=== PATIENT | male | born 1925 | race Caucasian/White ===

== ENCOUNTER 2016-04-09 16:56 | Inpatient (IN) ==
[2016-04-09 18:11] LABS: Basophils # (Auto) 0 K/mcL (0.0-0.3); Basophils % (Auto) 0.3 % (0.0-2.0); Eosinophils # (Auto) 0.2 K/mcL (0.0-0.7); Eosinophils % (Auto) 1.2 % (0.0-7.0); Granulocytes % (Auto) 81.4 % (38.0-78.0); Lymphocytes # (Auto) 1.2 K/mcL (1.5-4.8); Lymphocytes % (Auto) 8.6 % (15.5-49.0); Mean Cell Volume 94.2 fL (80.0-100.0); Mean Corpuscular HGB Conc 33.5 g/dL (31.0-36.0); Mean Corpuscular Hemoglobin 31.6 pg (26.0-34.0); Monocytes # (Auto) 1.2 K/mcL (0.1-0.9); Monocytes % (Auto) 8.5 % (1.0-9.0); Platelet Count 117 K/mcL (140-440); RBC 3.72 M/mcL (4.50-5.90); Red Cell Distribution Width 14.9 % (11.5-14.5)
--- NOTE | 2016-04-09 18:15 | Emergency Department Note ---
Weakness HPI - General Chief complaint: Weakness Stated complaint: cough, congestion,weak, falling Time Seen by Provider: 04/09/16 17:49 Source: patient, family Mode of arrival: ambulatory Limitations: no limitations - History of Present Illness HPI Narrative: 89-year-old gentleman is brought in by the daughter secondary to generalized weakness, which has progressed over the course of last few days. The. He did take a round of antibiotics started on 30 March for an upper respiratory infection, he was seen in the office for that and he also has diarrhea, we don' t really know how me stools. He has on a daily basis except that the daughter did observe one large episode of stool incontinence which she states was bloody and it was in the bed. He is on Coumadin. 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 Diarrhea has been chronic for the last few years, but seems to be worse since his respiratory infection. No vomiting, no chest pain. He does tell me his chest feels tight, but is laying comfortably on the gurney. He is quite wheezy, no history of COPD no history of smoking. MD Complaint: generalized weakness - Related Data Home Medications Medication Instructions Recorded Confirmed aspirin 81 mg chewable tablet 81 mg PO QDAY tab 08/03/14 04/09/16 carbidopa 25 mg-levodopa 100 mg 1 tab PO TID tab 08/03/14 04/09/16 tablet carvedilol 6.25 mg tablet 6.25 mg PO .COMPLEX tab 08/03/14 04/09/16 clopidogrel 75 mg tablet 75 mg PO QDAY tab 08/03/14 04/09/16 ezetimibe 10 mg-simvastatin 20 mg 1 tab PO QDAY tab 08/03/14 04/09/16 tablet furosemide 80 mg tablet 80 mg PO BID tab 08/03/14 04/09/16 meclizine 25 mg tablet 25 mg PO TID PRN tab 08/03/14 04/09/16 niacin ER 500 mg tablet,extended 500 mg PO QHS tab 08/03/14 04/09/16 release 24 hr potassium chloride ER 10 mEq 20 meq PO BID tab 08/03/14 04/09/16 tablet,extended release tramadol 50 mg tablet 50 mg PO Q6H PRN tab 06/16/15 02/20/17 losartan 25 mg tablet 25 mg PO QDAY tab 03/08/16 04/09/16 Previous Rx's Medication Instructions Recorded cholecalciferol (vitamin D3) 1,000 1,000 unit PO ONCE #30 cap 08/30/14 unit capsule donepezil 10 mg tablet 10 mg PO QHS #90 tab 01/11/16 tamsulosin 0.4 mg capsule 0.4 mg PO QDAY 90 Days 02/15/16 levofloxacin 750 mg tablet 750 mg PO QDAY #7 tab 03/29/16 prednisone 20 mg tablet 20 mg PO BID #20 tab 03/29/16 Allergies Allergy/AdvReac Type Severity Reaction Status Date / Time hydrochlorothiazide Allergy Unknown Unknown Verified 03/29/16 15:22 Review of Systems Limitations: ROS unobtainable due to patients medical condition Constitutional: Denies: fever, chills ENT ED: Denies: throat pain Cardiovascular: Denies: chest pain Respiratory: Reports: cough, dyspnea Gastrointestinal: Reports: diarrhea. Denies: abdominal pain, nausea Neurological: Reports: weakness Psychiatric: Reports: depression Endocrine: Reports: fatigue Past Medical History - Past Medical History Source: nursing notes reviewed Medical history: Reports: atrial fibrillation, coronary artery disease, dementia Surgical history ED: Reports: coronary bypass (CABG) Family history: Reports: no significant family history, non-contributory - Social History smoking status: Never smoker Alcohol use: Reports: Rarely Physical Exam - General Limitations: physical limitation General appearance: alert, other (generally weak appearing hard of hearing) - Head Head exam: atraumatic, normocephalic - Eye Eye exam: Present: normal appearance, PERRL, EOMI. Absent: scleral icterus, conjunctival injection, nystagmus - ENT ENT exam: normal exam, normal oropharynx, mucous membranes moist, TM's normal bilaterally - Neck Neck exam: Present: normal inspection, full ROM, trachea midline. Absent: meningismus - Chest Chest inspection: Present: normal inspection, symmetric chest wall rise - Respiratory Respiratory exam: Present: wheezes. Absent: respiratory distress - Cardiovascular Cardiovascular exam: Present: regular rate, systolic murmur, other (Paced rhythm almost 100%) - Abdominal Exam Abdominal exam: Present: soft, normal bowel sounds. Absent: distention, tenderness - Rectal Exam Rectal exam: Present: normal inspection, decreased rectal tone, heme (+) stool, other (soft brown stool, no rectal masses,) - exam: Present: normal inspection - Extremities Exam Extremities exam: Present: normal inspection, full ROM, other (Parkinsonian tremor of this upper extremities). Absent: pedal edema - Neurological Exam Neurological exam: Present: alert, reflexes normal. Absent: motor sensory deficit - Psychiatric Psychiatric exam: Present: flat affect - Skin Skin exam: Present: warm, dry, pallor Course - Reevaluation(s) Reevaluation #1: Discussed the case with our hospital daughter, the patient does have a number of issues going on. #1, he is being treated for failure and he is somewhat unreliable historian, certainly still wheezy, having respiratory issues and this after a seven-day course of Levaquin 750 mg per day. His diarrhea is about the same, he in fact, the daughter noticed a large amount of blood in the stool, he is on Plavix. He is also on aspirin and he is on 80 mg of Lasix twice a day, which may be causing some dehydration and. He might be weak from the dehydration as well as the diarrhea, he cannot tell us how may bowel movements. He has had per day, but certainly according to the daughter, he's had issues with the diarrhea, also recently been on antibiotics and is at risk for C. difficile. He has no acute abdominal pain, abdominal exam relatively unremarkable, but then he had blood in his stools and he may have gastritis which is hemorrhagic and induce from the antiplatelet therapy. His white blood cell count is elevated, but then he has been on steroids as well, difficult to tell whether he has an acute infection or whether he is struggling with heart failure. Certainly his heart sounds would support acute CHF with mild dehydration. Discussed with her hospital daughter this point, he will be admitted to hospital for further management and diagnosis Vital Signs Temperature 97.6 F 04/09/16 16:57 Pulse Rate 74 04/09/16 16:57 Respiratory Rate 16 04/09/16 16:57 Blood Pressure 129/67 04/09/16 16:57 Temperature 97.6 F 04/09/16 16:57 Pulse Rate 64 04/09/16 19:10 Respiratory Rate 18 04/09/16 19:10 Blood Pressure 146/58 04/09/16 19:09 Pulse Oximetry (%) 98 04/09/16 19:09 Weakness - MDM Narrative Medical decision making narrative: final diagnosis is CHF. #2, generalized weakness secondary to upper respiratory infection. #3. Diarrhea acute on chronic. #4. Heme positive stools. #5. Mild dehydration. - Lab Data Result diagrams: 04/09/16 17:30 04/09/16 17:30 Lab Results 04/09/16 04/09/16 04/09/16 Range/Units 17:30 17:30 17:30 WBC 13.7 H (4.5-11.0) K/mcL RBC 3.72 L (4.50-5.90) M/mcL Hgb 11.7 L (13.5-16.5) g/dL Hct 35.0 L (41.0-55.0) % MCV 94.2 (80.0-100.0) fL MCH 31.6 (26.0-34.0) pg MCHC 33.5 (31.0-36.0) g/dL RDW 14.9 H (11.5-14.5) % Plt Count 117 L (140-440) K/mcL MPV 8.1 (7.4-10.4) fL Gran % 81.4 H (38.0-78.0) % Lymph % (Auto) 8.6 L (15.5-49.0) % [place] % (Auto) 8.5 (1.0-9.0) % Eos % (Auto) 1.2 (0.0-7.0) % Baso % (Auto) 0.3 (0.0-2.0) % Gran # 11.1 H (1.8-8.0) K/mcL Lymph # 1.2 L (1.5-4.8) K/mcL [place] # 1.2 H (0.1-0.9) K/mcL Eos # 0.2 (0.0-0.7) K/mcL Baso # 0 (0.0-0.3) K/mcL ESR (0-15) mm/hr PT (11.9-14.5) sec INR (0.9-1.1) VBG Lactic Acid 2.3 H (0.5-2.2) mmol/L Sodium 140 (133-145) mmol/L Potassium 3.9 (3.3-5.1) mmol/L Chloride 101 (96-108) mmol/L Carbon Dioxide 25 (22-30) mmol/L Anion Gap 14.0 (8-16) BUN 38 H (8-23) mg/dl Creatinine 1.6 H (0.7-1.2) mg/dl GFR Calculation 38 Glucose 106 H (70-105) mg/dL Calcium 8.7 (8.6-10.4) mg/dl Magnesium (1.6-2.5) mg/dL Total Bilirubin 1.8 H (0.0-1.0) mg/dL AST 26 (0-37) U/l ALT 29 (0-40) U/l Alkaline Phosphatase 58 (39-117) U/L Troponin T (0-0.03) ng/ml C-Reactive Protein (0.0-0.8) mg/dl NT-Pro-B Natriuret Pep (0-450) pg/ml Total Protein 6.2 (5.9-8.4) gm/dL Albumin 3.8 (3.2-5.2) gm/dL Globulin 2.4 (2.2-3.7) gm/dL Albumin/Globulin Ratio 1.6 (1.0-2.3) Urine Color Urine Appearance Urine pH (5.0-9.0) Ur Specific [place] (1.000-1.035) Urine Protein (NEG) mg/dL Urine Glucose (UA) (NEG) mg/dL Urine Ketones (NEG) mg/dL Urine Occult Blood (<0.03) mg/dL Urine Nitrate (NEG) Urine Bilirubin (NEG) mg/dL Urine Urobilinogen (NEG) mg/dL Ur Leukocyte Esterase (NEG) /uL Ur Culture Indicated? 04/09/16 04/09/16 04/09/16 Range/Units 17:30 17:30 17:30 WBC (4.5-11.0) K/mcL RBC (4.50-5.90) M/mcL Hgb (13.5-16.5) g/dL Hct (41.0-55.0) % MCV (80.0-100.0) fL MCH (26.0-34.0) pg MCHC (31.0-36.0) g/dL RDW (11.5-14.5) % Plt Count (140-440) K/mcL MPV (7.4-10.4) fL Gran % (38.0-78.0) % Lymph % (Auto) (15.5-49.0) % [place] % (Auto) (1.0-9.0) % Eos % (Auto) (0.0-7.0) % Baso % (Auto) (0.0-2.0) % Gran # (1.8-8.0) K/mcL Lymph # (1.5-4.8) K/mcL [place] # (0.1-0.9) K/mcL Eos # (0.0-0.7) K/mcL Baso # (0.0-0.3) K/mcL ESR 12 (0-15) mm/hr PT (11.9-14.5) sec INR (0.9-1.1) VBG Lactic Acid (0.5-2.2) mmol/L Sodium (133-145) mmol/L Potassium (3.3-5.1) mmol/L Chloride (96-108) mmol/L Carbon Dioxide (22-30) mmol/L Anion Gap (8-16) BUN (8-23) mg/dl Creatinine (0.7-1.2) mg/dl GFR Calculation Glucose (70-105) mg/dL Calcium (8.6-10.4) mg/dl Magnesium (1.6-2.5) mg/dL Total Bilirubin (0.0-1.0) mg/dL AST (0-37) U/l ALT (0-40) U/l Alkaline Phosphatase (39-117) U/L Troponin T 0.01 (0-0.03) ng/ml C-Reactive Protein (0.0-0.8) mg/dl NT-Pro-B Natriuret Pep 894.1 H (0-450) pg/ml Total Protein (5.9-8.4) gm/dL Albumin (3.2-5.2) gm/dL Globulin (2.2-3.7) gm/dL Albumin/Globulin Ratio (1.0-2.3) Urine Color Urine Appearance Urine pH (5.0-9.0) Ur Specific [place] (1.000-1.035) Urine Protein (NEG) mg/dL Urine Glucose (UA) (NEG) mg/dL Urine Ketones (NEG) mg/dL Urine Occult Blood (<0.03) mg/dL Urine Nitrate (NEG) Urine Bilirubin (NEG) mg/dL Urine Urobilinogen (NEG) mg/dL Ur Leukocyte Esterase (NEG) /uL Ur Culture Indicated? 04/09/16 04/09/16 04/09/16 Range/Units 17:30 17:30 19:57 WBC (4.5-11.0) K/mcL RBC (4.50-5.90) M/mcL Hgb (13.5-16.5) g/dL Hct (41.0-55.0) % MCV (80.0-100.0) fL MCH (26.0-34.0) pg MCHC (31.0-36.0) g/dL RDW (11.5-14.5) % Plt Count (140-440) K/mcL MPV (7.4-10.4) fL Gran % (38.0-78.0) % Lymph % (Auto) (15.5-49.0) % [place] % (Auto) (1.0-9.0) % Eos % (Auto) (0.0-7.0) % Baso % (Auto) (0.0-2.0) % Gran # (1.8-8.0) K/mcL Lymph # (1.5-4.8) K/mcL [place] # (0.1-0.9) K/mcL Eos # (0.0-0.7) K/mcL Baso # (0.0-0.3) K/mcL ESR (0-15) mm/hr PT 15.6 H (11.9-14.5) sec INR 1.2 H (0.9-1.1) VBG Lactic Acid (0.5-2.2) mmol/L Sodium (133-145) mmol/L Potassium (3.3-5.1) mmol/L Chloride (96-108) mmol/L Carbon Dioxide (22-30) mmol/L Anion Gap (8-16) BUN (8-23) mg/dl Creatinine (0.7-1.2) mg/dl GFR Calculation Glucose (70-105) mg/dL Calcium (8.6-10.4) mg/dl Magnesium 2.5 (1.6-2.5) mg/dL Total Bilirubin (0.0-1.0) mg/dL AST (0-37) U/l ALT (0-40) U/l Alkaline Phosphatase (39-117) U/L Troponin T (0-0.03) ng/ml C-Reactive Protein 5.2 H (0.0-0.8) mg/dl NT-Pro-B Natriuret Pep (0-450) pg/ml Total Protein (5.9-8.4) gm/dL Albumin (3.2-5.2) gm/dL Globulin (2.2-3.7) gm/dL Albumin/Globulin Ratio (1.0-2.3) Urine Color Yellow Urine Appearance Clear Urine pH 5.0 (5.0-9.0) Ur Specific [place] 1.013 (1.000-1.035) Urine Protein Neg (NEG) mg/dL Urine Glucose (UA) Negative (NEG) mg/dL Urine Ketones Neg (NEG) mg/dL Urine Occult Blood Neg (<0.03) mg/dL Urine Nitrate Neg (NEG) Urine Bilirubin Neg (NEG) mg/dL Urine Urobilinogen Neg (NEG) mg/dL Ur Leukocyte Esterase Neg (NEG) /uL Ur Culture Indicated? No Disposition Disposition: Xfer As Inpt ([facility]) Condition: Fair Referrals: Pito Hernandez MD [Primary Care Provider] -
[2016-04-09 18:32] LABS: ALT/SGPT 29 U/l (0-40); Albumin 3.8 gm/dL (3.2-5.2); Albumin/Globulin Ratio 1.6 (1.0-2.3); Alkaline Phosphatase 58 U/L (39-117); Blood Urea Nitrogen 38 mg/dl (8-23)
[2016-04-09] MEDS ORDERED: IPRATROPIUM/ALBUTEROL 3 ML AMPUL.NEB NEB ONE (18:55)
[2016-04-09 18:57] LABS: C-Reactive Protein 5.2 mg/dl (0.0-0.8); Magnesium 2.5 mg/dL (1.6-2.5)
[2016-04-09] MEDS ORDERED: LACTATED RINGERS 1,000 ML IV SCH (19:00)
[2016-04-09] MEDS ORDERED: CAPTOPRIL 12.5 MG TABLET PO ONE (19:15)
[2016-04-09] MEDS ORDERED: ACETAMINOPHEN 325 MG TABLET PO ONE (19:15)
[2016-04-09] MEDS ORDERED: LIDOCAINE 5% OINT TUBE 35GM TOPICAL ONE (19:36)
[2016-04-09] MEDS ORDERED: LIDOCAINE JEL 2% 1 TUBE 30GM TOPICAL ONE ×2 (19:44→19:45)
[2016-04-09 20:28] LABS: Appearance,Urine CLEAR; Bilirubin,Urine NEG (NEG); Color,Urine YELLOW; Glucose,Urine (UA) NEGATIVE (NEG); Leukocyte Esterase,Urine NEG /uL (NEG); Nitrate,Urine NEG (NEG); Protein,Urine NEG (NEG); Specific Gravity,Urine 1.013 (1.000-1.035); Urine Blood NEG mg/dL (<0.03); Urobilinogen,Urine NEG (NEG)
--- NOTE | 2016-04-09 21:42 | Internal Med History&Physical ---
Medical - H&P: HPI Patient information: Note initiated : 04/09/16 at 9:39 pm Service Date, if different from initiated Date: [] Patient: Lakhwinder Randhawa a 89 y/o M admitted on for cough, congestion,weak, falling. Chief Complaint: [] History of present illness: Mr. Randhawa is a 89 year old male with multiple medical problems, dementia, parkinsons disease, presented to the ER with complaints of not feeling well for the last 2 weeks The patient was seen for cough, sob and wheezing in Dr Landin office approx 10 days ago, where he was diagnosed with copd exacerbation, treated with anbitiotics, and prednisone. The patient had some improvement in his condition but his condition worsened again. He began feeling weak and tired and unable to perform his routine activities Pt is a poor historian and history obtained from family who lives with him. The daughter who takes him to [facility] appointments was not present. The pt also ahs chr diarrhea going on for many years, but over the last week the family has noticed blood in the stools signifciant as per them, no clots. The patient fob in the ER Was positive but no gross blood was noted. Pt is on dual antiplatet agents from cardiology Pt denies any nausea or vomitingg, but has poor appetitie, no renetta, but has brigh red blood in stools, denies any chest pain, but admits to cough and shortness of breath. workup in the ER postive for elevated wbc, lactate and creat, cxr is neg. esr normal but crp is elevated. - Constitutional Constitutional: Present: chills, fever(s), weakness - EENT Eyes: Absent: blurry vision, change in vision Nose, mouth and throat: Absent: abnormal hearing, bleeding gums - Cardiovascular Cardiovascular: Absent: chest pain, orthopnea, palpatations, syncope - Respiratory Respiratory: Present: cough, dyspnea on exertion, wheezing, excessive phlegm production, change in phlegm color - Gastrointestinal Gastrointestinal: Present: diarrhea, excessive flatus, hematochezia, loose stools. Absent: abdominal pain, nausea, vomiting - Genitourinary Genitourinary: Absent: nocturia, urinary frequency, urinary hesitancy - Musculoskeletal Musculoskeletal: Absent: arthralgias, joint swelling - Integumentary Integumentary: Absent: skin ulcer, wounds, jaundice - Neurological Neurological: Present: weakness. Absent: disequilibrium, focal weakness, syncope, vertigo - Psychiatric Psychiatric: Present: confusion - Endocrine Endocrine: Absent: polydipsia, polyphagia, polyuria - Hematologic/Lymphatic Hematologic/Lymphatic: Present: easy bleeding, easy bruising - Allergic/Immunologic Allergic/Immunologic: Present: wheezing. Absent: uticaria Medical - H&P: [facility] Medical history: Medical History Thrombocytopenia (Acute) Aortic valve insufficiency (Chronic) Arthritis (Chronic) Atrial fibrillation (Chronic) CAD (coronary artery disease) of bypass graft (Chronic) Cardiomyopathy (Chronic) Chest pain (Chronic) Chronic edema (Chronic) Colon polyps (Chronic) Depression (Chronic) Gallbladder disorder (Chronic) Hyperlipidemia (Chronic) Hypertension, essential (Chronic) Mitral valve regurgitation (Chronic) Obesity (Chronic) Pacemaker (Chronic) Parkinson disease (Chronic) Skin disease (Chronic 06/23/14) Surgical history: Past Surgical History History of appendectomy (Chronic) History of back surgery (Chronic) History of cholecystectomy (Chronic) History of colonoscopy (Chronic) History of coronary artery bypass graft x 3 (Chronic) History of knee surgery (Chronic) History of pacemaker (Chronic) Family history: reviewed and not pertinent Social history: retired remote history of smoking no etoh no recreational substance lives with family. Medical - H&P: Meds Home Medications Medication Instructions Recorded Confirmed Type aspirin 81 mg chewable tablet 81 mg PO QDAY tab 08/03/14 04/09/16 History carbidopa 25 mg-levodopa 100 mg 1 tab PO TID tab 08/03/14 04/09/16 History tablet carvedilol 6.25 mg tablet 6.25 mg PO .COMPLEX tab 08/03/14 04/09/16 History clopidogrel 75 mg tablet 75 mg PO QDAY tab 08/03/14 04/09/16 History ezetimibe 10 mg-simvastatin 20 mg 1 tab PO QDAY tab 08/03/14 04/09/16 History tablet furosemide 80 mg tablet 80 mg PO BID tab 08/03/14 04/09/16 History meclizine 25 mg tablet 25 mg PO TID PRN tab 08/03/14 04/09/16 History niacin ER 500 mg tablet,extended 500 mg PO QHS tab 08/03/14 04/09/16 History release 24 hr potassium chloride ER 10 mEq 20 meq PO BID tab 08/03/14 04/09/16 History tablet,extended release tramadol 50 mg tablet 50 mg PO Q6H PRN tab 08/03/14 04/09/16 History losartan 25 mg tablet 25 mg PO QDAY tab 03/08/16 04/09/16 History Allergies Allergy/AdvReac Type Severity Reaction Status Date / Time hydrochlorothiazide Allergy Unknown Unknown Verified 03/29/16 15:22 Medical - H&P: Exam - Constitutional Vitals: Temp Pulse Resp BP Pulse Ox 97.6 F 70 26 H 105/84 97 04/09/16 16:57 04/09/16 21:19 04/09/16 21:19 04/09/16 21:19 04/09/16 21:19 General appearance: cooperative, no acute distress - Head Head exam: Present: atraumatic, normal inspection, normocephalic - Eye Eye exam: Absent: periorbital swelling, periorbital tenderness, scleral icterus - ENT ENT exam: Present: normal external ear exam Additional comments: hearing hard to conversation. - Neck Neck exam: Present: normal inspection - Respiratory Respiratory exam: Present: prolonged expiratory phase, rhonchi, wheezes. Absent : accessory muscle use - Cardiovascular Cardiovascular exam: Present: irregular rhythm, +S1, +S2 - GI/Abdominal GI/Abdominal exam: Present: normal bowel sounds, soft. Absent: firm, guarding, rigid, tenderness - Extremities Exam Extremities exam: Present: pedal edema (trace), Foot pink and warm, neurovascular intact - Back Exam Back exam: Present: normal inspection. Absent: CVA tenderness (L), CVA tenderness (R) - Neurological Exam Additional comments: [email or web address] obeys commands moves all extremities cn grossly intact. - Psychiatric Psychiatric exam: Absent: agitated - Skin Skin exam: Absent: rash, urticaria Medical - H&P: Reslt - Labs CBC & Chem 7: 04/09/16 17:30 04/09/16 17:30 Labs: Short CBC 04/09/16 Range/Units 17:30 WBC 13.7 H (4.5-11.0) K/mcL Hgb 11.7 L (13.5-16.5) g/dL Hct 35.0 L (41.0-55.0) % Plt Count 117 L (140-440) K/mcL BMP 04/09/16 17:30 Sodium 140 Potassium 3.9 Chloride 101 Carbon Dioxide 25 BUN 38 H Creatinine 1.6 H Glucose 106 H Calcium 8.7 Cardiac Enzymes 04/09/16 Range/Units 17:30 Troponin T 0.01 (0-0.03) ng/ml Liver Function 04/09/16 Range/Units 17:30 Total Bilirubin 1.8 H (0.0-1.0) mg/dL AST 26 (0-37) U/l ALT 29 (0-40) U/l Alkaline Phosphatase 58 (39-117) U/L Albumin 3.8 (3.2-5.2) gm/dL Urine 04/09/16 Range/Units 19:57 Urine Color Yellow Urine Appearance Clear Urine pH 5.0 (5.0-9.0) Ur Specific [place] 1.013 (1.000-1.035) Urine Protein Neg (NEG) mg/dL Urine Glucose (UA) Negative (NEG) mg/dL Medical - H&P: A/P (1) COPD exacerbation Current visit: Yes Status: Acute (2) Clostridium difficile diarrhea Current visit: Yes Status: Acute (3) Atrial fibrillation Current visit: No Status: Chronic (4) CAD (coronary artery disease) of bypass graft Problem details: 2002 Post CABG Current visit: No Status: Chronic (5) Pacemaker Problem details: 2010 Current visit: No Status: Chronic (6) Parkinson disease Current visit: No Status: Chronic (7) Sepsis Current visit: Yes Status: Acute - Narrative A/P Narrative: pt presents with sob, wheezing, and cough, failued outpatient treatment, with broad spectrum ABx Also has chr diarrhea with change in nature. now has intermittent blood in the stools Stools when evaluated in ER as per ER physician did not have gross blood Treat copd with iv steroids, Zithromax and duonebs, pt is not a good candidate for inhalers as outpt as given his age and dementia will not be able to coordinate his breath. Diarrhea- chr issue, but new blood in stool is concerning, check for Cdiff and start pt on vancomycin po given h/o recent use of abs afib- on dual antiplatlent agents, not on coumadin as high risk of bleed as per outpatient notes dvt hep sq GIB likely from colitis, monitor for now, if the patient develops significant bleed will get GI eval CAD/ CHF/ mild bnp elevation, CXR looks ok, resume home medications and monitor closely Code full for now, pt family to get his will and let us know in AM analy disease- resume meds Fall precautions.
[2016-04-09] MEDS ORDERED: ONDANSETRON 4 MG/2 ML VIAL IV PRN (22:34)
[2016-04-09] MEDS ORDERED: NALOXONE HCL 0.4 MG/ML VIAL IV PRN (22:34)
[2016-04-09] MEDS ORDERED: CARVEDILOL 6.25 MG TABLET PO SCH (22:34)
[2016-04-09] MEDS ORDERED: ACETAMINOPHEN 325 MG TABLET PO PRN (22:34)
[2016-04-09] MEDS ORDERED: AZITHROMYCIN 250 MG TABLET PO ONE (22:34)
[2016-04-09] MEDS ORDERED: traMADol 50 MG TABLET PO PRN (23:07)
[2016-04-09] MEDS: methylPREDNISolone SOD SUCC 125 MG/2 ML VIAL ONE ×2 (23:08→23:21)
[2016-04-09] MEDS: 0.9 % SODIUM CHLORIDE 1,000 ML IV SCH (23:14)
[2016-04-09] MEDS: IPRATROPIUM/ALBUTEROL 3 ML AMPUL.NEB NEB SCH (23:17)
[2016-04-10] MEDS: IPRATROPIUM/ALBUTEROL 3 ML AMPUL.NEB NEB SCH ×6 (03:27→22:58)
[2016-04-10] MEDS: methylPREDNISolone SOD SUCC 40 MG/ML VIAL IV SCH ×3 (05:38→22:39)
[2016-04-10 05:44] LABS: Basophils # (Auto) 0 K/mcL (0.0-0.3); Basophils % (Auto) 0 % (0.0-2.0); Eosinophils # (Auto) 0.1 K/mcL (0.0-0.7); Eosinophils % (Auto) 0.9 % (0.0-7.0); Lymphocytes # (Auto) 0.6 K/mcL (1.5-4.8); Lymphocytes % (Auto) 7.2 % (15.5-49.0); Mean Cell Volume 94.6 fL (80.0-100.0); Mean Corpuscular HGB Conc 33.2 g/dL (31.0-36.0); Mean Corpuscular Hemoglobin 31.5 pg (26.0-34.0); Monocytes # (Auto) 0.2 K/mcL (0.1-0.9); Monocytes % (Auto) 1.9 % (1.0-9.0); Platelet Count 82 K/mcL (140-440); RBC 3.07 M/mcL (4.50-5.90); Red Cell Distribution Width 15.2 % (11.5-14.5)
[2016-04-10 06:10] LABS: ALT/SGPT 22 U/l (0-40); Albumin 2.9 gm/dL (3.2-5.2); Albumin/Globulin Ratio 1.6 (1.0-2.3); Alkaline Phosphatase 46 U/L (39-117); Bilirubin,Direct 0.5 mg/dL (0.0-0.3); Blood Urea Nitrogen 32 mg/dl (8-23); Gamma Glutamyl Transpeptidase 12 U/L (8-61); Magnesium 2.4 mg/dL (1.6-2.5); Phosphorous 3.3 mg/dL (2.7-4.5); Uric Acid 7.9 mg/dL (2.5-8.0)
--- NOTE | 2016-04-10 07:42 | XRay Report ---
CLINICAL INFORMATION: Shortness of breath COMPARISON: 03/29/2016. FINDINGS: Pacemaker/defibrillator in stable satisfactory position. Cardiomediastinal silhouette and pulmonary vessels are normal. Lungs are clear. No effusions. IMPRESSION: Negative Interpreted and Authenticated by: George Dan 04/10/16
[2016-04-10] MEDS ORDERED: [UNRECOGNIZED DRUG - OTHER] PO SCH (09:00)
[2016-04-10] MEDS ORDERED: EZETIMIBE PO SCH (09:00)
[2016-04-10] MEDS ORDERED: SIMVASTATIN PO SCH (09:00)
[2016-04-10] MEDS ORDERED: VANCOMYCIN ORAL SOL 1,000 MG/10 ML BOTTLE PO SCH (09:00)
[2016-04-10] MEDS: CARVEDILOL 6.25 MG TABLET PO SCH ×2 (09:59→17:27)
[2016-04-10] MEDS: LOSARTAN 25 MG TABLET PO SCH (09:59)
[2016-04-10] MEDS: ASPIRIN 81 MG TAB.CHEW PO SCH (09:59)
[2016-04-10] MEDS: HEPARIN 5,000 UNIT/ML VIAL SQ SCH ×2 (09:59→20:53)
[2016-04-10] MEDS: CLOPIDOGREL 75 MG TABLET PO SCH (09:59)
[2016-04-10] MEDS: PANTOPRAZOLE 40 MG VIAL IV SCH (09:59)
[2016-04-10] MEDS: TAMSULOSIN 0.4 MG CAPSULE PO SCH (09:59)
[2016-04-10] MEDS: SIMVASTATIN 20 MG TABLET PO SCH (10:00)
[2016-04-10] MEDS ORDERED: NICOTINE 21 MG PATCH TOPICAL SCH (10:00)
[2016-04-10] MEDS: CARBIDOPA/LEVODOPA 25/100 TABLET PO SCH ×3 (10:00→20:53)
[2016-04-10] MEDS: FUROSEMIDE 80 MG TABLET PO SCH ×2 (10:00→17:26)
[2016-04-10] MEDS: POTASSIUM CHLORIDE 10 MEQ TABLET PO SCH ×2 (10:00→17:27)
[2016-04-10] MEDS: EZETIMIBE 10 MG TABLET PO SCH (10:00)
[2016-04-10] MEDS: 0.9 % SODIUM CHLORIDE 1,000 ML IV SCH ×2 (10:02→20:43)
--- NOTE | 2016-04-10 15:31 | Internal Med Progress Note ---
Medical - PN: Subj Patient information: Note initiated : 04/10/16 at 3:29 pm Service Date, if different from initiated Date: [] Patient: Lakhwinder Randhawa 89 y/o M admitted on 04/09/16 for COPD, Diarrhea, Sepsis. Chief Complaint: [] Interval history: 04/09: Mr. Randhawa is a 89 year old male with multiple medical problems, dementia, parkinsons disease, presented to the ER with complaints of not feeling well for the last 2 weeks The patient was seen for cough, sob and wheezing in Dr Landin office approx 10 days ago, where he was diagnosed with copd exacerbation, treated with anbitiotics, and prednisone. The patient had some improvement in his condition but his condition worsened again. He began feeling weak and tired and unable to perform his routine activities Pt is a poor historian and history obtained from family who lives with him. The daughter who takes him to [facility] appointments was not present. The pt also ahs chr diarrhea going on for many years, but over the last week the family has noticed blood in the stools signifciant as per them, no clots. The patient fob in the ER Was positive but no gross blood was noted. Pt is on dual antiplatet agents from cardiology Pt denies any nausea or vomitingg, but has poor appetitie, no renetta, but has brigh red blood in stools, denies any chest pain, but admits to cough and shortness of breath. workup in the ER postive for elevated wbc, lactate and creat, cxr is neg. esr normal but crp is elevated. 04/10: Seen examined, no acute overnight events, some events with tachycardia on tele, , pt asymptomatic, electrolytes stable. Patient to start on beta blockers. Sob and cough much better, maitaining oxygen saturations. patient diarrhea has no longer present, Cdiff is negative, vancomycin stopped Continue steroids, duonebs and zithromax. Pertinent ROS: Denies headache, dizziness Denies chest pain, palpitations cough and sob present, but improved. Denies abdominal pain, nausea or vomiting. - Constitutional Vitals: Vital Signs Temp Pulse Resp BP Pulse Ox 98.0 F 63 16 97/70 97 04/10/16 11:44 04/10/16 15:25 04/10/16 15:25 04/10/16 11:44 04/10/16 11:44 Period Temp Pulse Resp BP Sys/Argueta Pulse Ox Last 24 Hr 97.8 F-98.4 F 60-66 16-24 97-162/60-70 95-97 Intake and Output 04/10/16 04/10/16 04/10/16 05:59 13:59 21:59 Intake Total 360 / 1360 2019 Output Total 300 / 300 425 / 425 Balance 60 / 1060 1595 / 1595 Weight 180 lb 9.6 oz Patient Weight 04/11/16 05:59 Weight 180 lb 9.6 oz Intake & Output: Intake & Output 04/10/16 04/10/16 04/10/16 05:59 13:59 21:59 Intake Total 360 / 1360 2019 Output Total 300 / 300 425 / 425 Balance 60 / 1060 1595 / 1595 Weight 180 lb 9.6 oz Intake: IV 1000 / 1000 Sodium Chloride 0.9% 1, 1000 / 1000 000 ml @ 100 mls/hr IV . Q10H [facility] Rx#:[id number] Oral 360 / 360 1020 / 1020 Output: Void Amount 300 / 300 425 / 425 Other: Meal Lunch Percent of Meal Consumed 100% Feeding Ability Independent # Voids 1 Exam: Constitutional; Afebrile, cooperative, alert, not in distress. Eyes- No icterus, Pupils equal, reactive, No periorbital swelling Ears- Ext ear normal, hearing normal to conversation. Neck- Midline trachea, supple Respiratory system: Air Entry equal on both sides,john rhonchi improved since yesterday. CVS- Rate normal rhythm irregular, S1,S2 heard, no gallop, no rub. Abdomen- Soft nontender abdomen, no organomegaly, no tenderness, no guarding or rigidity, [employer]- AOOx2, moving all extremities, no focal deficit noted. Medical - PN: Obj Da - Labs CBC & Chem 7: 04/10/16 04:26 04/10/16 04:26 Labs: Abnormal Lab Results 04/10/16 04/10/16 04:26 04:26 RBC 3.07 L Hgb 9.7 L Hct 29.1 L RDW 15.2 H Plt Count 82 L Gran % 90.0 H Lymph % (Auto) 7.2 L Lymph # 0.6 L BUN 32 H Creatinine 1.3 H Glucose 121 H Calcium 7.7 L Total Bilirubin 1.3 H Direct Bilirubin 0.5 H Total Protein 4.7 L Albumin 2.9 L Globulin 1.8 L Meds: Medications Acetaminophen (Tylenol) 650 mg PO Q6HP PRN PRN Reason: PAIN/FEVER > 101 Albuterol/Ipratropium (Duoneb) 3 ml NEB Q4HRT [facility] Last Admin: 04/10/16 15:18 Dose: 3 ml Aspirin (Aspirin) 81 mg PO QDAY [facility] Last Admin: 04/10/16 09:59 Dose: 81 mg Azithromycin (Zithromax) 250 mg PO DAILY [facility] Stop: 04/13/16 09:01 Carbidopa/Levodopa (Sinemet 25/100) 1 tab PO TID [facility] Last Admin: 04/10/16 10:00 Dose: 1 tab Carvedilol (Coreg) 6.25 mg PO BIDCC [facility] Last Admin: 04/10/16 09:59 Dose: 6.25 mg Clopidogrel Bisulfate (Plavix) 75 mg PO QDAY [facility] Last Admin: 04/10/16 09:59 Dose: 75 mg Donepezil HCl (Aricept) 10 mg PO QHS [facility] Ezetimibe (Zetia) 10 mg PO DAILY [facility] Last Admin: 04/10/16 10:00 Dose: 10 mg Furosemide (Lasix) 80 mg PO BIDD [facility] Last Admin: 04/10/16 10:00 Dose: 80 mg Heparin Sodium (Porcine) (Heparin) 5,000 unit SQ Q12 [facility] Last Admin: 04/10/16 09:59 Dose: 5,000 unit Sodium Chloride (Sodium Chloride 0.9%) 1,000 mls @ 100 mls/hr IV .Q10H [facility] Last Admin: 04/10/16 10:02 Dose: 100 mls/hr Losartan Potassium (Cozaar) 25 mg PO QDAY [facility] Last Admin: 04/10/16 09:59 Dose: 25 mg Methylprednisolone Sodium Succinate (Solu-Medrol) 40 mg IV Q8 [facility] Last Admin: 04/10/16 05:38 Dose: 40 mg Naloxone HCl (Narcan) 0.1 mg IV Q2MIN PRN PRN Reason: Opiate Reversal Ondansetron HCl (Zofran) 4 mg IV Q4HP PRN PRN Reason: Nausea And Vomiting Pantoprazole Sodium (Protonix) 40 mg IV QAMAC [facility] Last Admin: 04/10/16 09:59 Dose: 40 mg Potassium Chloride (Kdur) 20 meq PO BIDCC [facility] Last Admin: 04/10/16 10:00 Dose: 20 meq Simvastatin (Zocor) 20 mg PO DAILY [facility] Last Admin: 04/10/16 10:00 Dose: 20 mg Tamsulosin HCl (Flomax) 0.4 mg PO QDAY [facility] Last Admin: 04/10/16 09:59 Dose: 0.4 mg Tramadol HCl (Ultram) 50 mg PO Q6HP PRN PRN Reason: Pain Medical - PN: A/P - Time Spent With Patient Total time spent is greater than 50% in coordination of care (as documented) at patient's floor/unit and/or counseling patient: (1) COPD exacerbation Status: Acute Current Visit: Yes (2) Clostridium difficile diarrhea Status: Acute Current Visit: Yes (3) Atrial fibrillation Status: Chronic Current Visit: No (4) 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 DVT hep sq diet regular with thin. Medical - PN: Qual - VTE Deep Vein Thrombosis/Pulmonary Embolism Present on Admission: No
[2016-04-10] MEDS: AZITHROMYCIN 250 MG TABLET PO SCH (17:27)
[2016-04-10] MEDS ORDERED: DONEPEZIL 10 MG TABLET PO SCH (21:00)
[2016-04-10] MEDS: guaiFENesin/CODEINE 10 ML UDC PO PRN (23:53)
[2016-04-11] MEDS: IPRATROPIUM/ALBUTEROL 3 ML AMPUL.NEB NEB SCH ×4 (02:53→15:36)
[2016-04-11] MEDS: methylPREDNISolone SOD SUCC 40 MG/ML VIAL IV SCH ×2 (05:11→14:35)
[2016-04-11 06:04] LABS: ALT/SGPT 13 U/l (0-40); Albumin/Globulin Ratio 1.8 (1.0-2.3); Alkaline Phosphatase 43 U/L (39-117); Bilirubin,Direct 0.3 mg/dL (0.0-0.3); Blood Urea Nitrogen 25 mg/dl (8-23); Gamma Glutamyl Transpeptidase 11 U/L (8-61); Magnesium 2.2 mg/dL (1.6-2.5); Phosphorous 2.7 mg/dL (2.7-4.5)
[2016-04-11 06:12] LABS: Basophils # (Auto) 0 K/mcL (0.0-0.3); Basophils % (Auto) 0 % (0.0-2.0); Eosinophils # (Auto) 0 K/mcL (0.0-0.7); Eosinophils % (Auto) 0.4 % (0.0-7.0); Granulocytes % (Auto) 92.3 % (38.0-78.0); Lymphocytes # (Auto) 0.5 K/mcL (1.5-4.8); Lymphocytes % (Auto) 5.2 % (15.5-49.0); Mean Corpuscular HGB Conc 33.5 g/dL (31.0-36.0); Mean Corpuscular Hemoglobin 31.8 pg (26.0-34.0); Monocytes # (Auto) 0.2 K/mcL (0.1-0.9); Monocytes % (Auto) 2.1 % (1.0-9.0); Platelet Count 72 K/mcL (140-440); RBC 2.99 M/mcL (4.50-5.90); Red Cell Distribution Width 15.6 % (11.5-14.5)
[2016-04-11] MEDS: 0.9 % SODIUM CHLORIDE 1,000 ML IV SCH (10:12)
[2016-04-11] MEDS: TAMSULOSIN 0.4 MG CAPSULE PO SCH (10:52)
[2016-04-11] MEDS: guaiFENesin/CODEINE 10 ML UDC PO PRN (10:52)
[2016-04-11] MEDS: PANTOPRAZOLE 40 MG VIAL IV SCH (10:52)
[2016-04-11] MEDS: LOSARTAN 25 MG TABLET PO SCH (10:52)
[2016-04-11] MEDS: HEPARIN 5,000 UNIT/ML VIAL SQ SCH (10:52)
[2016-04-11] MEDS: SIMVASTATIN 20 MG TABLET PO SCH (10:53)
[2016-04-11] MEDS: AZITHROMYCIN 250 MG TABLET PO SCH (10:53)
[2016-04-11] MEDS: POTASSIUM CHLORIDE 10 MEQ TABLET PO SCH (10:53)
[2016-04-11] MEDS: ASPIRIN 81 MG TAB.CHEW PO SCH (10:53)
[2016-04-11] MEDS: CLOPIDOGREL 75 MG TABLET PO SCH (10:53)
[2016-04-11] MEDS: CARBIDOPA/LEVODOPA 25/100 TABLET PO SCH ×2 (10:53→15:36)
[2016-04-11] MEDS: EZETIMIBE 10 MG TABLET PO SCH (10:53)
[2016-04-11] MEDS: FUROSEMIDE 80 MG TABLET PO SCH (10:53)
[2016-04-11] MEDS: CARVEDILOL 6.25 MG TABLET PO SCH (10:53)
--- NOTE | 2016-04-11 11:50 | Internal Med Progress Note ---
Medical - PN: Subj Patient information: Note initiated : 04/11/16 at 11:46 am Service Date, if different from initiated Date: [] Patient: Lakhwinder Randhawa 89 y/o M admitted on 04/09/16 for COPD, Diarrhea, Sepsis. Chief Complaint: [] Interval history: DISCHARGE DIAGNOSIS * COPD exacerbation-clinically resolvedon steroids/bronchodilators/ABX. * history of CAD/CHF on a similar/beta niecy/Plavix/statin/aspirin * A. fib on beta niecy * History of Parkinson's disease * hyperlipidemia on statin * dementia and donepezil * BPH tamsulosin Brief hospital course 04/09: Mr. Randhawa is a 89 year old male with multiple medical problems, dementia, parkinsons disease, presented to the ER with complaints of not feeling well for the last 2 weeks The patient was seen for cough, sob and wheezing in Dr Landin office approx 10 days ago, where he was diagnosed with copd exacerbation, treated with anbitiotics, and prednisone. The patient had some improvement in his condition but his condition worsened again. He began feeling weak and tired and unable to perform his routine activities Pt is a poor historian and history obtained from family who lives with him. The daughter who takes him to [facility] appointments was not present. The pt also ahs chr diarrhea going on for many years, but over the last week the family has noticed blood in the stools signifciant as per them, no clots. The patient fob in the ER Was positive but no gross blood was noted. Pt is on dual antiplatet agents from cardiology Pt denies any nausea or vomitingg, but has poor appetitie, no renetta, but has brigh red blood in stools, denies any chest pain, but admits to cough and shortness of breath. workup in the ER postive for elevated wbc, lactate and creat, cxr is neg. esr normal but crp is elevated. 04/10: Seen examined, no acute overnight events, some events with tachycardia on tele, , pt asymptomatic, electrolytes stable. Patient to start on beta blockers. Sob and cough much better, maitaining oxygen saturations. patient diarrhea has no longer present, Cdiff is negative, vancomycin stopped Continue steroids, duonebs and zithromax. 04/11- discharge home on azithromycin for additional 4 days. No overnight fever chills nausea vomiting. No concerns per staff. No telemetry events. continue steroids for additional 5 days.detailed discharge instructions as below - Constitutional Vitals: Vital Signs Temp Pulse Resp BP Pulse Ox 98.4 F 81 20 122/63 94 04/11/16 11:39 04/11/16 08:00 04/11/16 11:39 04/11/16 11:39 04/11/16 11:39 Period Temp Pulse Resp BP Sys/Argueta Pulse Ox Last 24 Hr 98.0 F-98.8 F 63-81 16- 121-163/60-80 93-98 Intake and Output 04/10/16 04/11/16 04/11/16 21:59 05:59 13:59 Intake Total 1480 / 1480 1080 / 1080 1000 / 1000 Output Total 550 / 550 1050 / 1050 Balance 930 / 930 30 / 30 1000 / 1000 Weight 180 lb 1.6 oz Intake & Output: Intake & Output 04/10/16 04/11/16 04/11/16 21:59 05:59 13:59 Intake Total 1480 / 1480 1080 / 1080 1000 / 1000 Output Total 550 / 550 1050 / 1050 Balance 930 / 930 30 / 30 1000 / 1000 Weight 180 lb 1.6 oz Intake: IV 1000 / 1000 1000 / 1000 Sodium Chloride 0.9% 1, 1000 / 1000 1000 / 1000 000 ml @ 100 mls/hr IV . Q10H [facility] Rx#:[id number] Oral 480 / 480 1080 / 1080 Output: Void Amount 550 / 550 1050 / 1050 Other: Meal Dinner Percent of Meal Consumed 100% Feeding Ability Assist with Tray Set Up Medical - PN: Obj Da - Labs CBC & Chem 7: 04/11/16 04:16 04/11/16 04:16 Labs: Abnormal Lab Results 04/11/16 04/11/16 04/10/16 04:16 04:16 04:26 RBC 2.99 L Hgb 9.5 L Hct 28.4 L RDW 15.6 H Plt Count 72 L Gran % 92.3 H Lymph % (Auto) 5.2 L Gran # 8.9 H Lymph # 0.5 L BUN 25 H 32 H Creatinine 1.3 H Glucose 144 H 121 H Calcium 7.5 L 7.7 L Total Bilirubin 1.3 H Direct Bilirubin 0.5 H Lactate Dehydrogenase 266 H Total Protein 4.7 L 4.7 L Albumin 3.0 L 2.9 L Globulin 1.7 L 1.8 L 04/10/16 04:26 RBC 3.07 L Hgb 9.7 L Hct 29.1 L RDW 15.2 H Plt Count 82 L Gran % 90.0 H Lymph % (Auto) 7.2 L Gran # Lymph # 0.6 L BUN Creatinine Glucose Calcium Total Bilirubin Direct Bilirubin Lactate Dehydrogenase Total Protein Albumin Globulin Meds: Medications Acetaminophen (Tylenol) 650 mg PO Q6HP PRN PRN Reason: PAIN/FEVER > 101 Albuterol/Ipratropium (Duoneb) 3 ml NEB Q4HRT [facility] Last Admin: 04/11/16 07:09 Dose: 3 ml Aspirin (Aspirin) 81 mg PO QDAY [facility] Last Admin: 04/11/16 10:53 Dose: 81 mg Azithromycin (Zithromax) 250 mg PO DAILY [facility] Stop: 04/13/16 09:01 Last Admin: 04/11/16 10:53 Dose: 250 mg Carbidopa/Levodopa (Sinemet 25/100) 1 tab PO TID [facility] Last Admin: 04/11/16 10:53 Dose: 1 tab Carvedilol (Coreg) 6.25 mg PO BIDCC [facility] Last Admin: 04/11/16 10:53 Dose: 6.25 mg Clopidogrel Bisulfate (Plavix) 75 mg PO QDAY [facility] Last Admin: 04/11/16 10:53 Dose: 75 mg Donepezil HCl (Aricept) 10 mg PO QHS [facility] Last Admin: 04/10/16 20:53 Dose: 10 mg Ezetimibe (Zetia) 10 mg PO DAILY [facility] Last Admin: 04/11/16 10:53 Dose: 10 mg Furosemide (Lasix) 80 mg PO BIDD [facility] Last Admin: 04/11/16 10:53 Dose: 80 mg Guaifenesin/Codeine Phosphate (Robitussin Ac) 10 ml PO Q4HP PRN PRN Reason: Cough Last Admin: 04/11/16 10:52 Dose: 10 ml Heparin Sodium (Porcine) (Heparin) 5,000 unit SQ Q12 [facility] Last Admin: 04/11/16 10:52 Dose: 5,000 unit Sodium Chloride (Sodium Chloride 0.9%) 1,000 mls @ 100 mls/hr IV .Q10H [facility] Last Admin: 04/11/16 10:12 Dose: 100 mls/hr Losartan Potassium (Cozaar) 25 mg PO QDAY [facility] Last Admin: 04/11/16 10:52 Dose: 25 mg Methylprednisolone Sodium Succinate (Solu-Medrol) 40 mg IV Q8 [facility] Last Admin: 04/11/16 05:11 Dose: 40 mg Naloxone HCl (Narcan) 0.1 mg IV Q2MIN PRN PRN Reason: Opiate Reversal Ondansetron HCl (Zofran) 4 mg IV Q4HP PRN PRN Reason: Nausea And Vomiting Pantoprazole Sodium (Protonix) 40 mg IV QAMAC [facility] Last Admin: 04/11/16 10:52 Dose: 40 mg Potassium Chloride (Kdur) 20 meq PO BIDCC [facility] Last Admin: 04/11/16 10:53 Dose: 20 meq Simvastatin (Zocor) 20 mg PO DAILY [facility] Last Admin: 04/11/16 10:53 Dose: 20 mg Tamsulosin HCl (Flomax) 0.4 mg PO QDAY [facility] Last Admin: 04/11/16 10:52 Dose: 0.4 mg Tramadol HCl (Ultram) 50 mg PO Q6HP PRN PRN Reason: Pain Medical - PN: A/P - Time Spent With Patient Total time spent is greater than 50% in coordination of care (as documented) at patient's floor/unit and/or counseling patient: Medical - PN: Qual - VTE Deep Vein Thrombosis/Pulmonary Embolism Present on Admission: No
--- NOTE | 2016-04-11 11:53 | Discharge Summary ---
Medical - DS: Prov Patient information: Note initiated : 04/11/16 at 11:50 am Service Date, if different from initiated Date: [] Patient: Lakhwinder Randhawa 89 y/o M admitted on 04/09/16 for COPD, Diarrhea, Sepsis. Chief Complaint: [] Date of admission: 04/09/16 22:31 Discharge date: 04/11/16 Primary care physician: [f_Reg Prim Care Provider] Medical - DS: Meds - Discharge Medications Prescriptions: Azithromycin [Zithromax] 250 mg PO DAILY #4 tablet predniSONE [Prednisone] 20 mg PO BID #10 tab Active and Home Medications: Home Medications aspirin 81 mg chewable tablet 81 mg PO QDAY tab 08/03/14 [History Confirmed Last Taken Unknown] carbidopa 25 mg-levodopa 100 mg tablet 1 tab PO TID tab 08/03/14 [History Confirmed 04/09/16 Last Taken Unknown] carvedilol 6.25 mg tablet 6.25 mg PO .COMPLEX tab 08/03/14 [History Confirmed 04/09/16 Last Taken Unknown] clopidogrel 75 mg tablet 75 mg PO QDAY tab 08/03/14 [History Confirmed Last Taken Unknown] ezetimibe 10 mg-simvastatin 20 mg tablet 1 tab PO QDAY tab 08/03/14 [History Confirmed 04/09/16 Last Taken Unknown] furosemide 80 mg tablet 80 mg PO BID tab 08/03/14 [History Confirmed 04/09/16 Last Taken Unknown] meclizine 25 mg tablet 25 mg PO TID PRN tab 08/03/14 [History Confirmed Last Taken Unknown] niacin ER 500 mg tablet,extended release 24 hr 500 mg PO QHS tab 08/03/14 [ History Confirmed 04/09/16 Last Taken Unknown] potassium chloride ER 10 mEq tablet,extended release 20 meq PO BID tab [History Confirmed 04/09/16 Last Taken Unknown] tramadol 50 mg tablet 50 mg PO Q6H PRN tab 08/03/14 [History Confirmed Last Taken Unknown] cholecalciferol (vitamin D3) 1,000 unit capsule 1,000 unit PO ONCE #30 cap 08/30 [Rx Confirmed 04/09/16 Last Taken Unknown] donepezil 10 mg tablet 10 mg PO QHS #90 tab 01/11/16 [Rx Confirmed 04/09/16 Last Taken Unknown] tamsulosin 0.4 mg capsule 0.4 mg PO QDAY 90 Days 02/15/16 [Rx Confirmed Last Taken Unknown] losartan 25 mg tablet 25 mg PO QDAY tab 03/08/16 [History Confirmed 04/09/16 Last Taken Unknown] prednisone 20 mg tablet 20 mg PO BID #20 tab 03/29/16 [Rx Confirmed 04/09/16 Last Taken Unknown] Azithromycin [Zithromax] 250 mg PO DAILY #4 tablet 04/11/16 [Rx Last Taken Unknown] Medical - DS: Hosp Hospital course: DISCHARGE DIAGNOSIS * COPD exacerbation-clinically resolvedon steroids/bronchodilators/ABX. * history of CAD/CHF on a similar/beta niecy/Plavix/statin/aspirin * A. fib on beta niecy * History of Parkinson's disease * hyperlipidemia on statin * dementia and donepezil * BPH tamsulosin Brief hospital course 04/09: Mr. Randhawa is a 89 year old male with multiple medical problems, dementia, parkinsons disease, presented to the ER with complaints of not feeling well for the last 2 weeks The patient was seen for cough, sob and wheezing in Dr Landin office approx 10 days ago, where he was diagnosed with copd exacerbation, treated with anbitiotics, and prednisone. The patient had some improvement in his condition but his condition worsened again. He began feeling weak and tired and unable to perform his routine activities Pt is a poor historian and history obtained from family who lives with him. The daughter who takes him to [facility] appointments was not present. The pt also ahs chr diarrhea going on for many years, but over the last week the family has noticed blood in the stools signifciant as per them, no clots. The patient fob in the ER Was positive but no gross blood was noted. Pt is on dual antiplatet agents from cardiology Pt denies any nausea or vomitingg, but has poor appetitie, no renetta, but has brigh red blood in stools, denies any chest pain, but admits to cough and shortness of breath. workup in the ER postive for elevated wbc, lactate and creat, cxr is neg. esr normal but crp is elevated. 04/10: Seen examined, no acute overnight events, some events with tachycardia on tele, , pt asymptomatic, electrolytes stable. Patient to start on beta blockers. Sob and cough much better, maitaining oxygen saturations. patient diarrhea has no longer present, Cdiff is negative, vancomycin stopped Continue steroids, duonebs and zithromax. 04/11- discharge home on azithromycin for additional 4 days. No overnight fever chills nausea vomiting. No concerns per staff. No telemetry events. continue steroids for additional 5 days.detailed discharge instructions as below Discharge diagnosis: cOPD exacerbation - Time Spent with Patient Total time spent providing and/or coordinating discharge services: Medical - DS: Exam - Constitutional Vitals: Vital Signs Temp Pulse Pulse Resp BP Pulse Ox 04/11/16 11:39 98.4 F 20 122/63 94 04/11/16 08:00 98.1 F 81 16 139/62 95 04/11/16 07:10 63 18 95 04/11/16 04:00 98.8 F 20 140/64 93 04/11/16 02:57 64 18 04/10/16 23:54 98.4 F 22 156/71 97 04/10/16 23:03 64 20 04/10/16 20:00 98.0 F 20 121/60 93 04/10/16 19:04 68 22 04/10/16 18:59 97 04/10/16 16:00 98.0 F 20 163/80 98 04/10/16 15:25 63 16 Intake and Output 04/10/16 04/11/16 04/11/16 21:59 05:59 13:59 Intake Total 1480 / 1480 1080 / 1080 1000 / 1000 Output Total 550 / 550 1050 / 1050 Balance 930 / 930 30 / 30 1000 / 1000 Intake: IV 1000 / 1000 1000 / 1000 Sodium Chloride 0.9% 1, 1000 / 1000 1000 / 1000 000 ml @ 100 mls/hr IV . Q10H [facility] Rx#:[id number] Oral 480 / 480 1080 / 1080 Output: Void Amount 550 / 550 1050 / 1050 Other: Meal Dinner Percent of Meal Consumed 100% Feeding Ability Assist with Tray Set Up Weight 180 lb 1.6 oz Medical - DS: Data Labs on day of discharge: Labs from last 24 hours 04/11/16 04/11/16 04:16 04:16 WBC 9.6 RBC 2.99 L Hgb 9.5 L Hct 28.4 L MCV 95.0 MCH 31.8 MCHC 33.5 RDW 15.6 H Plt Count 72 L MPV 8.2 Gran % 92.3 H Lymph % (Auto) 5.2 L [place] % (Auto) 2.1 Eos % (Auto) 0.4 Baso % (Auto) 0 Gran # 8.9 H Lymph # 0.5 L [place] # 0.2 Eos # 0 Baso # 0 Sodium 136 Potassium 4.1 Chloride 102 Carbon Dioxide 23 Anion Gap 11.0 BUN 25 H Creatinine 1.1 GFR Calculation 59 Glucose 144 H Uric Acid 7.0 Calcium 7.5 L Phosphorus 2.7 Magnesium 2.2 Total Bilirubin 0.8 Direct Bilirubin 0.3 GGT 11 AST 19 ALT 13 Alkaline Phosphatase 43 Lactate Dehydrogenase 266 H Total Protein 4.7 L Albumin 3.0 L Globulin 1.7 L Albumin/Globulin Ratio 1.8 Triglycerides 65 Medical - DS: A/P - Patient/Caregiver Discharge Instructions Activity: as per physical therapy, resume usual activities as tolerated Diet: Low Sodium (2gm) Additional Instructions: Follow-up PCP in 5 days Follow-up cardiology in 1 week I recommend primary care physician to check CBC BMP UA as a posthospital follow- up and Chest x-ray in 1 week. Antibiotics for additional 4 days Continue aggressive bowel regimen to prevent constipation Continue fall precautions All meals on chair sitting upright at 90 degrees to prevent aspiration Return to ER if worsening fever chills shortness of breath, diarrhea, bleeding Review risk and side effect profile of medications including antibiotics. Side effect may include mild to severe reaction including rash, diarrhea, cdiff and even which can be prevented by close follow-up with PCP Continue diet and activity as advised Discussed importance of medication adherence Please review medication list with patient prior to discharge Please schedule follow-up with PCP/Providers prior to discharge and provide printouts Portions of this chart may have been created with [employer] voice recognition software. Occasional wrong-word or ?sound-like? substitutions may have occurred due to the inherent limitations of voice recognition software. Please read the chart carefully and recognize, using context, where the substitutions have occurred. CC- PCP Prescriptions: Azithromycin [Zithromax] 250 mg PO DAILY #4 tablet predniSONE [Prednisone] 20 mg PO BID #10 tab - Follow up Plan Follow up with: Pito Hernandez MD [Primary Care Provider] - 04/23/16 2:00 pm Disposition: Home, Self-Care Prognosis: Fair Rehab Potential: Fair I certify that the patient requires SNF services: No Overall status at discharge: patient is progressing back to baseline Medical - DS: Qual - VTE Deep Vein Thrombosis/Pulmonary Embolism Present on Admission: No
== END 2016-04-11 14:35 | disposition home or self-care (01) | DRG 190 ==
LOC: ED 16:56 → ICU 22:30
PROVIDERS: ADMIT Internal Medicine; ATTEND Internal Medicine